=== PATIENT | female | born 1980 | race Two or more races ===

== ENCOUNTER 2024-05-26 14:26 | Emergency (ER) | payer MEDICAID, OTHER ==
[~2024-05-26] VITALS: Ht 152.4 cm; Wt 77.2 kg
[2024-05-26 14:59] VITALS: BP 111/70; PULSE 95; RESP 16; TEMP 99.2; O2SAT 98
[2024-05-26] MEDS: TETANUS-DIPTH-ACEL PERTUSSIS 0.5ML SYR Tdap IM ONE (15:05)
[2024-05-26] MEDS ORDERED: CEPH500C PO (15:32)
[2024-05-26] MEDS ORDERED: NAPR-746 PO (15:32)
== END 2024-05-26 15:48 | disposition home or self-care (01) ==
LOC: ER 14:26
DX: S61.411A Laceration without foreign body of right hand, initial encounter (principal); W26.0XXA Contact with knife, initial encounter; Y93.89 Activity, other specified; Y92.89 Other specified places as the place of occurrence of the external cause; Y99.8 Other external cause status
CPT/HCPCS: 12002; 90471; 90715